=== PATIENT | female | born 1985 | race Caucasian/White ===

== ENCOUNTER 2017-12-12 06:06 | Day surgery (SDC) | payer BC, OTHER ==
[2017-12-09 18:38] VITALS: BMI 22.3
[2017-12-12] MEDS ORDERED: DEXAMETHASONE SOD PHOSPHATE 4 MG/1 ML VIAL ONE ×2 (07:18→09:13)
[2017-12-12] MEDS ORDERED: LIDOCAINE HCL 1%, 10 MG/ML (20ML VIAL) ONE (07:18)
[2017-12-12] MEDS ORDERED: BUPIVACAINE HCL/PF 0.5% (5MG/ML) 10 ML VIAL ONE ×2 (07:19→10:53)
[2017-12-12] MEDS ORDERED: MIDAZOLAM HCL 2 MG/2 ML SINGLE DOSE VIAL ONE (07:30)
[2017-12-12] MEDS ORDERED: PROPOFOL 20 ML ONE ×2 (07:30)
[2017-12-12] MEDS ORDERED: LIDOCAINE HCL/PF 2% SDV 5ML VIAL ONE (07:30)
[2017-12-12] MEDS ORDERED: CLINDAMYCIN PHOSPHATE 600 MG/4 ML VIAL ONE (07:53)
[2017-12-12] MEDS ORDERED: LIDOCAINE HCL 1%, 10 MG/ML (20ML VIAL) PNB ONE (08:12)
[2017-12-12] MEDS ORDERED: CLINDAMYCIN 600 MG PREMIX BAG IVPB ONE (08:55)
[2017-12-12] MEDS ORDERED: KETOROLAC TROMETHAMINE 30 MG/1 ML VIAL ONE (11:08)
[2017-12-12] MEDS ORDERED: BUPIVACAINE HCL/PF (5 MG/ML) 30 ML VIAL IJ ONE (11:23)
[2017-12-12] MEDS ORDERED: ACETAMINOPHEN 500 MG TABLET (FP) PO PRN (11:38)
[2017-12-12] MEDS ORDERED: oxyCODONE HCL 5 MG TABLET PO PRN (11:38)
[2017-12-12] MEDS ORDERED: ONDANSETRON 4 MG/2 ML VIAL IVPUSH PRN (11:38)
[2017-12-12] MEDS ORDERED: LACTATED RINGERS SOLUTION 1,000 ML IV SCH (11:45)
[2017-12-12] MEDS ORDERED: ONDANSETRON 4 MG/2 ML VIAL ONE (13:40)
[2017-12-12] MEDS ORDERED: ONDANSETRON 4 MG/2 ML VIAL IVPUSH ONE (13:45)
[2017-12-12] MEDS ORDERED: PROMETHAZINE HCL 25 MG/1 ML VIAL IVPB PRN (14:51)
[2017-12-12 16:58] VITALS: BP 105/61; PULSE 70; TEMP 98
--- NOTE | 2017-12-16 17:12 | PATH ---
Surgical Pathology Report Patient Name: SUNIL EPRRIN [facility]. Rec. #: [id number] /Age/Gender: 1985 (Age: 32) / F Account: [id number] Location: [facility] Taken: 12/12/2017 Received: 12/12/2017 Reported: 12/16/2017 Physicians: Jose Marino DPM Specimen(s) Received BONE AND SOFT TISSUE RIGHT FOOT Clinical History Right foot bunion Final Diagnosis BONE AND SOFT TISSUE, FOOT, RIGHT, EXCISION: BONE WITH DEGENERATIVE CHANGES AND DENSE FIBROCONNECTIVE TISSUE. Electronically Signed Bess Power M.D. Gross Description Received in formalin labeled "bone and soft tissue right foot," is a 4.8 x 3.5 x 0.5 cm aggregate of multiple bone and soft tissue fragments. [facility] sections are submitted in one cassette, following decalcification. /12/12/2017 saudi/12/12/2017
--- NOTE | 2018-01-13 09:39 | OP ---
DATE OF OPERATION: 12/12/2017 PREOPERATIVE DIAGNOSIS: Painful bunion deformity, right foot. POSTOPERATIVE DIAGNOSIS: Painful bunion deformity, right foot. SURGEON: Ping Marino DPM SHRIMP PEELING MACHINE OPERATOR: Ezra Zapien ANESTHESIA: LMA and ankle block. OPERATION: 1. Lapidus bunionectomy. 2. [place] osteotomy. 3. Medial capsulorrhaphy. 4. Lateral release. PATHOLOGY: Right foot bone sent for pathology. ESTIMATED BLOOD LOSS: 3 mL. HEMOSTASIS: Ankle tourniquet. MATERIALS: 3-0 and 4-0 Vicryl, 4-0 nylon, Pendroy 28 Lapidus 8-mm plate, 10 x 10 Pendroy 28 staple, 3.5 x 44-mm cannulated screw, DBM bone. INJECTIONS: 16 mL of 1% lidocaine plain preoperatively. OPERATIVE FINDINGS: The patient was brought to the operating room and placed on the operating table in the supine position. A pneumatic ankle tourniquet was then placed on the patient's right ankle. A right ankle block with injection of 16 mL of 1% lidocaine plain was performed after completion of LMA. The foot was then scrubbed, prepped, and draped in the usual aseptic manner. An Esmarch bandage was utilized to exsanguinate the patient's right foot and the tourniquet was inflated. Attention was then directed to the dorsal aspect of the 1st metatarsal of the right foot where a 5-cm linear incision was made medial and parallel to the tendon of the extensor hallices longus. The incision was deepened through the subcutaneous tissues using sharp and blunt dissection. Care was taken to identify all vital neural and vascular structures. All bleeders were ligated and cauterized as necessary. At this time, a linear capsulotomy was performed over the dorsal aspect of the 1st metatarsophalangeal joint. The periosteal and capsular structures were then carefully dissected and reflected medially and laterally, thus exposing the head of the 1st metatarsal. Using a sagittal saw, the medial and dorsal prominences were then resected and passed from the operative field. Next, attention was then directed to the 1st metatarsocuneiform joint. The incision was deepened through the subcutaneous tissues using sharp and blunt dissection. Care was taken to identify all vital neural and vascular structures as well as retraction of the extensor hallices longus tendon. All bleeders were ligated and cauterized as necessary. The metatarsocuneiform joint was then resected of cartilage was performed to the base of the 1st metatarsal and articular surface of the medial cuneiform joint. Osteochondral drilling was then performed to the metatarsal base and medial cuneiform with placement of DBM to assist fusion at the joint. The 1st metatarsal was then held in the corrected position to reduce the bunion deformity at the metatarsocuneiform joint and temporary fixation achieved using K-wire from medial [id number] lateral. Next, using Pendroy 28 Lapidus 8-mm plate system, fixation to the medial aspect of the metatarsocuneiform was achieved. Another temporary K-wire fixation was then placed over the [id number] plantar where a 3.5 x 44-mm cannulated screw was placed to achieve compression in the same orientation as the metatarsocuneiform joint. The fixation in the 1st metatarsocuneiform was deemed to have excellent compression with evaluation under fluoroscopy in the optimum position. Next, attention was directed to the proximal phalanx of the 1st digit. The original incision was extended distally to the head of the proximal phalanx. After adequate sharp and blunt dissection, retracting all neurovascular components, the distal half of the proximal phalanx was exposed. The extensor tendon complex was reflected laterally to expose the entire dorsal surface area of the distal half of the proximal phalanx. Using a sagittal saw, a closing wedge osteotomy was performed to the proximal phalanx with the apex pointing laterally. A wedge was removed from the proximal phalanx and passed off of the operative field. After feathering to the lateral cortex, the hallux was deemed to be in excellent position after closing the wedge at the proximal phalanx. Next, using the 10 x 10 Pendroy 28 staple system, it was measured that a size 10 staple was deemed appropriate for the fixation. Using the drill guide, the proximal then distal portion of the osteotomy site was drilled with the hallux continuing to be held in corrected position. Then the staple was inserted into the drill site and tapped to fit snugly against the proximal phalanx. Fixation was deemed adequate and good. Attention was then directed to the 1st interspace via the original skin incision. Sharp and blunt dissection was utilized to reach and visualize the conjoined tendon, which was transected as well as the fibular sesamoid ligament. It did appear that the lateral retractor present on the hallux was significantly reduced. The medial capsular structure at this time was partially resected for the medial capsulorrhaphy. A wound to the Lapidus procedure was then flushed with copious amounts of saline. The periosteum and capsular structures were reapproximated with 3-0 Vicryl and subcutaneous tissue was then closed with 3-0 Vicryl as well. The skin edges were then coapted using 4-0 nylon in a horizontal suture stitch. The incision was dressed with Adaptic and covered with sterile compressive dressing consisting of 4 x 4, ABD, Tristan, and Russel bandage. The tourniquet was then deflated and immediate hyperemia returned to all digits. The patient tolerated the procedure well and was transferred to the recovery room with all vital signs stable and vascular status intact to the feet. Following postoperative monitoring, the patient will be discharged and given instructions and prescriptions, which were discussed prior to the surgery. PING MARINO DPM [id number]
== END 2017-12-12 16:05 | disposition home or self-care (01) ==
LOC: JASU-SURG 06:06
PROVIDERS: ATTEND Podiatrist Foot Surgery
PROC: 0SGK04Z Fusion of Right Tarsometatarsal Joint with Internal Fixation Device, Open Approach (ICD-10-PCS; principal; 2017-12-12 07:30)
DX: M21.611 Bunion of right foot (principal); M20.11 Hallux valgus (acquired), right foot
CPT/HCPCS: 73630-TC-RT-FY; 76000-TC-FY; 84703; 88304-TC; 88311-TC; 94760

== ENCOUNTER 2018-06-19 06:15 | Day surgery (SDC) | payer BC, OTHER ==
[2018-06-16 17:30] VITALS: BMI 22.1
[2018-06-19] MEDS ORDERED: ONDANSETRON 4 MG/2 ML VIAL IVPUSH PRN (07:51)
[2018-06-19] MEDS ORDERED: LACTATED RINGERS SOLUTION 1,000 ML IV SCH (08:00)
[2018-06-19] MEDS ORDERED: MIDAZOLAM HCL 2 MG/2 ML SINGLE DOSE VIAL ONE ×3 (08:14→08:18)
[2018-06-19] MEDS ORDERED: PROPOFOL 20 ML ONE ×5 (08:21→09:27)
[2018-06-19] MEDS ORDERED: ceFAZolin SODIUM 1 GM VIAL IVPB ONE (08:23)
[2018-06-19] MEDS ORDERED: LIDOCAINE HCL 1%, 10 MG/ML (20ML VIAL) ONE (08:23)
[2018-06-19] MEDS ORDERED: BUPIVACAINE HCL/PF 0.25% (2.5MG/ML) 10 ML VIAL ONE (08:23)
[2018-06-19] MEDS ORDERED: SUCCINYLCHOLINE CHLORIDE 200 MG/10 ML VIAL ONE (08:27)
[2018-06-19] MEDS ORDERED: LIDOCAINE HCL 1%, 10 MG/ML (20ML VIAL) NR ONE (08:29)
[2018-06-19] MEDS ORDERED: KETOROLAC TROMETHAMINE 30 MG/1 ML VIAL ONE (08:33)
[2018-06-19] MEDS ORDERED: BUPIVACAINE HCL/PF 0.25% (2.5MG/ML) 10 ML VIAL IJ ONE (09:57)
[2018-06-19 11:11] VITALS: TEMP 98.2
[2018-06-19] MEDS ORDERED: oxyCODONE HCL 5 MG TABLET PO ONE (11:15)
[2018-06-19] MEDS ORDERED: oxyCODONE HCL 5 MG TABLET ONE (11:22)
[2018-06-19 12:44] VITALS: BP 113/67; PULSE 90
--- NOTE | 2018-06-22 17:40 | PATH ---
Surgical Pathology Report Patient Name: SUNIL PERRIN [facility]. Rec. #: [id number] /Age/Gender: 1985 (Age: 33) / F Account: [id number] Location: [facility] Taken: 06/19/2018 Received: 06/19/2018 Reported: 06/22/2018 Physicians: Jose Marino DPM Specimen(s) Received A: BONE RIGHT FOOT B: STAPLE Clinical History Fracture right hallux Final Diagnosis A. FOOT, RIGHT, BONE, OPEN REDUCTION AND INTERNAL FIXATION (ORIF) OF RIGHT HALLUX AND PROXIMAL PHALANX: BONE WITH REACTIVE CHANGES. B. FOOT, RIGHT, STAPLE, REMOVAL: SURGICAL HARDWARE. MACROSCOPIC DIAGNOSIS. Electronically Signed Bess Power M.D. Gross Description A. Received in formalin labeled "bone right foot," is a 0.8 cm greatest dimension mcallister bone fragment. The specimen is submitted in toto in one cassette, following decalcification. B. Received in formalin labeled "staple right foot," is a 1.3 cm in greatest dimension sethi metallic staple. No soft tissue is present. No sections are submitted, gross only. DL/06/19/2018 saudi06/19/2018
--- NOTE | 2018-06-24 13:43 | OP ---
DATE OF OPERATION: 06/19/2018 PREOPERATIVE DIAGNOSIS: Postoperative fracture, right hallux. POSTOPERATIVE DIAGNOSIS: Postoperative fracture, right hallux. PROCEDURE: Removal of hardware, right hallux, re-fracture of hallux with micro-sagittal saw for realignment, re-fixation with crossed K-wires. SURGEON: Jose Marino DPM HEMOSTASIS: Ankle tourniquet placed at 250 mmHg. DESCRIPTION OF PROCEDURE: The patient was prepped and draped in the usual manner and brought to the OR in stable condition. General anesthesia was administered along with local infiltrative block of lidocaine plain 1%. Ankle tourniquet was inflated to 250 mmHg for hemostasis, and the foot was then prepped and draped in the usual manner. Attention was directed to the dorsal aspect of the right 1st metatarsophalangeal joint and proximal phalanx. The incision was made at this site and deepened down to the level of the capsule. At this time, the capsule and periosteum were transected, and utilizing blunt and sharp dissection, all soft tissue including scar tissue were reflected both medially and laterally, which enabled visualization of the previous fixation. At this time, the staple was removed and utilizing a power micro-sagittal saw, a cut was made mid phalanx and angled from distal dorsal to proximal plantar, which succeeded, and then plantar flexing the distal aspect of the hallux. This was done to address the dorsiflexion of the hallux, which was the result of the previous fracture. Once this was completed, a 0.062-inch K-wire was retrograded through the distal tip of the hallux. At this point, the fragment was lined up with the base of the proximal phalanx and then driven into the head of the metatarsal for stability. Position was then checked both visually and on x-ray, and the hallux was noted to be plantar flexed properly and aligned perfectly with the long axis of the 1st metatarsal. Prior to driving the K-wire and fixating it at this point, 0.5 mL of bone graft was placed within the fractured site. A second point of fixation was then accomplishing utilizing a second K-wire that was driven from distal medial to proximal lateral, thereby providing 2 points of fixation for enhanced stability. Alignment was then reconfirmed both visually, clinically, and on intraoperative fluoroscopy. At this time, the wound was then flushed out with a small amount of sterile bacteriostatic water so as to not wash out the bone graft. The deep tissue was closed with 4-0 Vicryl suture, and the skin was closed with 4-0 Vicryl and 4-0 nylon sutures, as well, in a horizontal mattress technique. Postoperative injectable of 8 mL of Marcaine plain 0.25% was administered followed by application of Adaptic and a dry sterile compressive dressing. At this time, the ankle tourniquet was deflated, and there was an instantaneous hyperemic response noted to return to all digits of the operative foot. Patient was stable at the time of procedure and was sent to PACU in stable condition. In PACU, a below-knee protective CAM boot was applied. JOSE MARINO DPM [id number]
== END 2018-06-19 12:47 | disposition home or self-care (01) ==
LOC: JASU-SURG 06:15
PROVIDERS: ATTEND Podiatrist Foot Surgery
PROC: 0QSQ04Z Reposition Right Toe Phalanx with Internal Fixation Device, Open Approach (ICD-10-PCS; 2018-06-19)
PROC: 0YP90YZ Removal of Other Device from Right Lower Extremity, Open Approach (ICD-10-PCS; principal; 2018-06-19 08:00)
DX: S92.401A Displaced unspecified fracture of right great toe, initial encounter for closed fracture (principal); M20.11 Hallux valgus (acquired), right foot
CPT/HCPCS: 76000-TC-FY; 84703; 88300-TC; 88304-TC; 88311-TC; 94760